=== PATIENT | male | born 1990 | race Caucasian/White ===

== ENCOUNTER 2016-08-22 19:38 | Emergency (ER) | payer BC, OTHER ==
[2016-08-22] MEDS ORDERED: FAMOTIDINE 20 MG/2 ML VIAL IV STA (20:08)
[2016-08-22] MEDS ORDERED: SODIUM CHLORIDE 0.9% 1,000 ML IV STA (20:08)
[2016-08-22] MEDS ORDERED: ONDANSETRON 4 MG/2 ML VIAL IVP STA (20:08)
--- NOTE | 2016-08-22 20:10 | ED ---
General Adult HPI - General Chief complaint: Nausea/Vomiting/Diarrhea Stated complaint: Dizzy Time Seen by Provider: 08/22/16 20:04 Source: patient Mode of arrival: ambulatory Limitations: no limitations - History of Present Illness Initial comments: Patient's age 25-year-old male presenting with nausea, vomiting, diarrhea. Patient states symptoms started over the last 24 hours and he has vomited 4 times. Initially vomit was food contents and then watery. Patient denies bloody vomit. Patient has not taken any medication for the vomit. Patient had one episode of loose stool. Stool was nonbloody in nature. Patient denies sick contacts or antibiotic use. Patient denies child. Patient does have a suspicion that he ate some bad popcorn shrimp at [facility] yesterday. - Related Data Home Medications Medication Instructions Recorded Confirmed No Known Home Medications [No 08/22/16 08/22/16 Known Home Medications] Allergies Allergy/AdvReac Type Severity Reaction Status Date / Time No Known Allergies Allergy Verified 08/22/16 20:10 Review of Systems ROS Statement: Those systems with pertinent positive or pertinent negative responses have been documented in the HPI. Constitutional: No fever and no chills. HENT: No congestion, no rhinorrhea and no sore throat. Eyes: No discharge and no redness. Respiratory: No cough and no shortness of breath. Cardiovascular: No chest pain and no palpitations. Gastrointestinal: +nausea, +vomiting, no abdominal pain and +diarrhea. Genitourinary: No dysuria and no hematuria. Musculoskeletal: No back pain and no arthralgias. Skin: No pallor and no rash. Neurological: No dizziness and No headaches. ROS Other: All systems not noted in ROS Statement are negative. Past Medical History Past Medical History: No Reported History History of Any Multi-Drug Resistant Organisms: None Reported Past Surgical History: Ear Surgery Past Psychological History: ADD/ADHD Smoking Status: Current every day smoker Past Alcohol Use History: Rare Past Drug Use History: None Reported General Exam - General Exam Comments Initial Comments: Constitutional: Patient appears well-developed and well-nourished. No distress. Head: Normocephalic and atraumatic. Eyes: Conjunctivae and EOM are normal. Right eye exhibits no discharge. Left eye exhibits no discharge. No scleral icterus. Neck: Normal range of motion. Neck supple. Cardiovascular: Normal rate and regular rhythm. No murmur heard. Pulmonary/Chest: Effort normal and breath sounds normal. No respiratory distress. No wheezes. Abdominal: Soft. No distension. There is no tenderness. There is no rebound and no guarding. Musculoskeletal: Normal range of motion. No edema or tenderness. Neurological: Patient alert and oriented to person, place, and time. Skin: Skin is warm and dry. Not diaphoretic. Nursing notes and vitals reviewed. Limitations: no limitations Course Vital Signs 08/22/16 19:53 Temperature 99.0 F Pulse Rate 99 Respiratory 18 Rate Blood Pressure 100/65 O2 Sat by Pulse 99 Oximetry - Reevaluation(s) Reevaluation #1: 08/22/16 22:41 Patient's been much better after IV fluids and medications. No abdominal tenderness. No right upper quadrant tenderness. Medical Decision Making - Medical Decision Making Patient is a 25-year-old male presenting with nausea/vomiting/diarrhea. Patient has concern that he ate bad food yesterday. Patient was given IV fluids , Pepcid, Zofran with improvement of symptoms. Laboratory work shows elevated bilirubin of 2.2. Patient's been much better and no abdominal pain. Abdominal exam reveals a soft nontender. Patient instructed to follow up with primary care doctor about elevated bilirubin. Prior to discharge, patient was resting comfortably in bed. Course of stay improved. Denies pain. Discussed physical exam and diagnostic tests with patient. Questions answered and patient is agreeable to discharge with close follow up with Primary Care Physician. Instructed to return to Emergency Department if symptoms worsen. - Lab Data Result diagrams: 08/22/16 20:27 08/22/16 20:27 Lab Results 08/22/16 08/22/16 Range/Units 20:27 20:27 WBC 8.3 (3.8-10.6) k/uL RBC 5.39 (4.30-5.90) m/uL Hgb 16.5 (13.0-17.5) gm/dL Hct 47.0 (39.0-53.0) % MCV 87.1 (80.0-100.0) fL MCH 30.6 (25.0-35.0) pg MCHC 35.2 (31.0-37.0) g/dL RDW 13.1 (11.5-15.5) % Plt Count 138 L (150-450) k/uL Neutrophils % 87 % Lymphocytes % 7 % Monocytes % 5 % Eosinophils % 1 % Basophils % 0 % Neutrophils # 7.2 (1.3-7.7) k/uL Lymphocytes # 0.6 L (1.0-4.8) k/uL Monocytes # 0.4 (0-1.0) k/uL Eosinophils # 0.1 (0-0.7) k/uL Basophils # 0.0 (0-0.2) k/uL Sodium 140 (137-145) mmol/L Potassium 4.0 (3.5-5.1) mmol/L Chloride 104 (98-107) mmol/L Carbon Dioxide 23 (22-30) mmol/L Anion Gap 13 mmol/L BUN 20 (9-20) mg/dL Creatinine 0.70 (0.66-1.25) mg/dL Est GFR (MDRD) Af Amer >60 (>60 ml/min/1.73 sqM) Est GFR (MDRD) Non-Af >60 (>60 ml/min/1.73 sqM) Glucose 90 (74-99) mg/dL Calcium 9.2 (8.4-10.2) mg/dL Total Bilirubin 2.2 H (0.2-1.3) mg/dL AST 23 (17-59) U/L ALT 35 (21-72) U/L Alkaline Phosphatase 81 (38-126) U/L Total Protein 7.7 (6.3-8.2) g/dL Albumin 4.8 (3.5-5.0) g/dL Lipase 13 L (23-300) U/L Disposition Clinical Impression: Nausea vomiting and diarrhea, Elevated bilirubin Disposition: HOME SELF-CARE Condition: Good Instructions: Acute Nausea and Vomiting (ED), Acute Diarrhea (ED) Referrals: None,Stated [Primary Care Provider] - 1-2 days David Hoffman MD [REFERRING] - 1-2 days
[2016-08-22 20:39] LABS: Basophils % (A) 0 %; CH 32.1; Eosinophils # (A) 0.1 k/uL (0-0.7); Eosinophils % (A) 1 %; HDW 2.65; HGB 16.5 gm/dL (13.0-17.5); Luc # (Auto) 0.06; Luc % (Auto) 1; Lymphocytes # (A) 0.6 k/uL (1.0-4.8); Lymphocytes % (A) 7 %; MCH 30.6 pg (25.0-35.0); MCHC 35.2 g/dL (31.0-37.0); MCV 87.1 fL (80.0-100.0); Mean Platelet Volume 7.3; Monocytes # (A) 0.4 k/uL (0-1.0); Monocytes % (A) 5 %; Neutrophils # (A) 7.2 k/uL (1.3-7.7); Neutrophils % (A) 87 %; RBC 5.39 m/uL (4.30-5.90); RDW 13.1 % (11.5-15.5); WBC 8.3 k/uL (3.8-10.6); WBC (Perox) 8.18
[2016-08-22 20:44] LABS: ALT 35 U/L (21-72); AST 23 U/L (17-59); Alkaline Phosphatase 81 U/L (38-126); Anion Gap 13 mmol/L; Blood Urea Nitrogen 20 mg/dL (9-20); Calcium 9.2 mg/dL (8.4-10.2); Carbon Dioxide 23 mmol/L (22-30); Chloride 104 mmol/L (98-107); Glucose 90 mg/dL (74-99); Non-African American GFR(MDRD) >60 (>60 ml/min/1.73 sqM); Sodium 140 mmol/L (137-145); Total Bilirubin 2.2 mg/dL (0.2-1.3); Total Protein 7.7 g/dL (6.3-8.2)
[2016-08-22 23:10] VITALS: BP 136/63; PULSE 85; RESP 16; TEMP 98.1
== END 2016-08-22 22:50 | disposition home or self-care (01) ==
LOC: EC 19:38
DX: R11.2 Nausea with vomiting, unspecified (principal); R19.7 Diarrhea, unspecified; R17 Unspecified jaundice; F17.200 Nicotine dependence, unspecified, uncomplicated
CPT/HCPCS: 36415; 80053; 83690; 85025; 99284; 96374; 96375; 96361; J2405

== ENCOUNTER 2016-10-05 07:16 | Emergency (ER) | payer BC, OTHER ==
[2016-10-05 07:27] VITALS: BP 142/63; PULSE 85; RESP 20; TEMP 99
== END 2016-10-05 07:43 | disposition home or self-care (01) ==
LOC: EC 07:16
DX: Z02.89 Encounter for other administrative examinations (principal)

== ENCOUNTER 2017-08-23 21:08 | Emergency (ER) | payer BC, OTHER ==
[2017-08-23] MEDS ORDERED: DEXAMETHASONE SOD PHOSPHATE 10 MG/ML 1 ML VIAL IM STA (21:27)
[2017-08-23] MEDS ORDERED: IBUPROFEN 600 MG TAB PO STA (21:27)
[2017-08-23] MEDS ORDERED: ACETAMINOPHEN TAB 325 MG TAB PO STA (21:27)
--- NOTE | 2017-08-23 22:01 | ED ---
ENT HPI - General Chief complaint: ENT Stated complaint: Sore throat Time Seen by Provider: 08/23/17 21:13 Source: patient Mode of arrival: ambulatory Limitations: no limitations - History of Present Illness Initial comments: 26-year-old male patient presents to the emergency department today for evaluation of a sore throat. Patient states that symptoms started yesterday morning. Patient states that his throat feels swollen which makes it difficult for him to swallow. He denies any nasal drainage or cough. Denies any known fevers. States it is been aching and feeling unwell throughout the day. Denies any abdominal pain or vomiting. Patient denies any recent rash, fever, chills, shortness breath, chest pain, abdominal pain, nausea, vomiting, diarrhea , constipation, back pain, numbness, tingling, dizziness, weakness, hematuria, dysuria, urinary urgency, urinary frequency, headache, visual changes, or any other complaints. - Related Data Home Medications Medication Instructions Recorded Confirmed Ibuprofen [Motrin] 800 mg PO Q6HR PRN 07/14/17 08/23/17 Previous Rx's Medication Instructions Recorded Amoxicillin 500 mg PO Q8H #30 capsule 08/23/17 Allergies Allergy/AdvReac Type Severity Reaction Status Date / Time No Known Allergies Allergy Verified 08/23/17 21:12 Review of Systems ROS Statement: Those systems with pertinent positive or pertinent negative responses have been documented in the HPI. ROS Other: All systems not noted in ROS Statement are negative. Past Medical History Past Medical History: No Reported History History of Any Multi-Drug Resistant Organisms: None Reported Past Surgical History: Ear Surgery Past Psychological History: ADD/ADHD Smoking Status: Current every day smoker Past Alcohol Use History: Rare Past Drug Use History: None Reported General Exam Limitations: no limitations General appearance: alert, in no apparent distress, other (This is a well- developed, well-nourished adult male patient in no acute distress. Vital signs upon presentation are temperature 99.1F, pulse 105, respirations 22, blood pressure 140/74, pulse ox 96% on room air.) Eye exam: Present: normal appearance, PERRL, EOMI. Absent: scleral icterus, conjunctival injection, periorbital swelling ENT exam: Present: normal exam, mucous membranes moist, TM's normal bilaterally (Bilateral tympanic membrane scarring, otherwise normal.). Absent: normal oropharynx (Pharyngeal erythema, tonsillar hypertrophy, no tonsillar exudate noted.) Neck exam: Present: normal inspection. Absent: tenderness, meningismus, lymphadenopathy Respiratory exam: Present: normal lung sounds bilaterally. Absent: respiratory distress, wheezes, rales, rhonchi, stridor Cardiovascular Exam: Present: regular rate, normal rhythm, normal heart sounds. Absent: systolic murmur, diastolic murmur, rubs, gallop, clicks GI/Abdominal exam: Present: soft, normal bowel sounds. Absent: distended, tenderness, guarding, rebound, rigid Neurological exam: Present: alert, oriented X3, CN II-XII intact Psychiatric exam: Present: normal affect, normal mood Skin exam: Present: warm, dry, intact, normal color. Absent: rash Course Vital Signs 08/23/17 21:09 Temperature 99.1 F Pulse Rate 105 H Respiratory 22 Rate Blood Pressure 140/74 O2 Sat by Pulse 96 Oximetry Medical Decision Making - Medical Decision Making 26-year-old male patient presented to the emergency department today for evaluation of a sore throat and painful swallowing. Physical examination did reveal tonsillar hypertrophy and erythema. Patient had no lymphadenopathy. Currently afebrile. Currently absent is cough and nasal drainage. I did discuss findings of a negative strep screen and influenza test with the patient. I did discuss the possibility of the false negative testing on the strep screen. I did write him a prescription for amoxicillin and gave him explicit instructions to start this if he continues to have a sore throat for the next 3 days with the absence of cough and coryza. He is instructed to continue taking ibuprofen for anti-inflammatory effects and pain relief. He is instructed to increase fluids. Instructed to follow-up with his primary care physician for recheck in 1-2 days. He is instructed to return here immediately for any new, worsening, or concerning symptoms. He verbalizes understanding and agrees with this plan. - Lab Data Lab Results 08/23/17 08/23/17 Range/Units 21:20 22:10 Influenza Type A RNA Not Detected (Not Detectd) Influenza Type B (PCR) Not Detected (Not Detectd) Group A Strep Rapid Negative (Negative) Disposition Clinical Impression: Pharyngitis Disposition: HOME SELF-CARE Condition: Good Instructions: Pharyngitis (ED) Additional Instructions: Rest, increase fluids. Take antibiotic prescription in full. Follow-up with your primary care physician for recheck in 1-2 days. Treat ear pain and fevers with ibuprofen and acetaminophen. Return here immediately for any new, worsening, or concerning symptoms. Prescriptions: Amoxicillin 500 mg PO Q8H #30 capsule Referrals: None,Stated [Primary Care Provider] - 1-2 days Time of Disposition: 22:38
[2017-08-23 22:52] VITALS: BP 152/62; PULSE 94; RESP 18; TEMP 98.8
== END 2017-08-23 22:54 | disposition home or self-care (01) ==
LOC: EC 21:08
DX: J02.9 Acute pharyngitis, unspecified (principal); F17.200 Nicotine dependence, unspecified, uncomplicated
CPT/HCPCS: 87081; 87430; 87502; 99283; 96372; J1100

== ENCOUNTER 2017-11-26 00:40 | Emergency (ER) | payer OTHER ==
[2017-11-26 00:50] VITALS: BP 141/88; PULSE 66; RESP 18; TEMP 97.3
[2017-11-26] MEDS ORDERED: PENICILLIN VK 500MG STARTER 4 TAB BTL PO STA (01:42)
[2017-11-26] MEDS ORDERED: ACET/COD 300 MG/30 MG STARTER PACK 6 TAB BTL PO STA (01:42)
--- NOTE | 2017-11-26 01:45 | ED ---
General Adult HPI - General Chief complaint: Dental/Oral Stated complaint: Dental Pain Time Seen by Provider: 11/26/17 01:36 Source: patient, RN notes reviewed Mode of arrival: ambulatory Limitations: no limitations - History of Present Illness Initial comments: Patient 26-year-old male presented to the emergency room today with a chief complaint of increased dental pain. Patient does admit that pain started 2 days ago. He states he was using ibuprofen. He states today he has not had much relief. He states that he's had a difficult time trying to sleep tonight because of the pain. Patient denies any drainage or discharge. He states he does have bad teeth. Patient denies any recent fever, chills, shortness of breath, chest pain, back pain, abdominal pain, nausea or vomiting, numbness or tingling, dysuria or hematuria, constipation or diarrhea, headaches or visual changes, or any other complaints. - Related Data Home Medications Medication Instructions Recorded Confirmed Ibuprofen [Motrin] 800 mg PO Q6HR PRN 07/14/17 08/23/17 Previous Rx's Medication Instructions Recorded Amoxicillin 500 mg PO Q8H #30 capsule 08/23/17 Allergies Allergy/AdvReac Type Severity Reaction Status Date / Time No Known Allergies Allergy Verified 11/26/17 00:50 Review of Systems ROS Statement: Those systems with pertinent positive or pertinent negative responses have been documented in the HPI. ROS Other: All systems not noted in ROS Statement are negative. Past Medical History Past Medical History: No Reported History History of Any Multi-Drug Resistant Organisms: None Reported Past Surgical History: Ear Surgery Past Psychological History: ADD/ADHD Smoking Status: Current every day smoker Past Alcohol Use History: Rare Past Drug Use History: None Reported General Exam - General Exam Comments Initial Comments: General: The patient is awake and alert, in no distress, and does not appear acutely ill. Eye: Pupils are equal, round and reactive to light, extra-ocular movements are intact. No nystagmus. There is normal conjunctiva bilaterally. No signs of icterus. Ears, nose, mouth and throat: There are moist mucous membranes and no oral lesions. Patient tender to palpation upper gumline over tooth #2. No sign of abscess. Uvula midline. Neck: The neck is supple, there is no tenderness or JVD. Musculoskeletal: Normal ROM, no tenderness. Strength 5/5. Sensation intact. Pulses equal bilaterally 2+. Neurological: A&O x 3. CN II-XII intact, There are no obvious motor or sensory deficits. Coordination appears grossly intact. Speech is normal. Skin: Skin is warm and dry and no rashes or lesions are noted. Psychiatric: Cooperative, appropriate mood & affect, normal judgment. Limitations: no limitations Course Vital Signs 11/26/17 00:47 Temperature 97.3 F L Pulse Rate 66 Respiratory 18 Rate Blood Pressure 141/88 O2 Sat by Pulse 99 Oximetry Medical Decision Making - Medical Decision Making Options were discussed with the patient about dental block here in emergency room. He has declined. Patient agreeable to [Tylenol 3 and penicillin. Will be discharged home with penicillin prescription. Advised follow-up over the next 2 days with dentist. Disposition Clinical Impression: Dental abscess Disposition: HOME SELF-CARE Condition: Good Instructions: Dental Abscess (ED) Additional Instructions: Please follow-up dentist over the next 2 days. Please use antibiotic as prescribed. Please return to emergency room for any other concerns. Is patient prescribed a controlled substance at d/c from ED?: Yes If prescribed controlled substance>3 days was MAPS reviewed?: No When asked, does pt state using other controlled substances?: No Referrals: None,Stated [Primary Care Provider] - 1-2 days Time of Disposition: 01:44
== END 2017-11-26 01:52 | disposition home or self-care (01) ==
LOC: EC 00:40
DX: K04.7 Periapical abscess without sinus (principal); F17.200 Nicotine dependence, unspecified, uncomplicated
CPT/HCPCS: 99282

== ENCOUNTER 2023-11-12 19:34 | Emergency (ER) | payer BC ==
[2023-11-12 20:19] VITALS: TEMP 97.2
[2023-11-12] MEDS: DEXAMETHASONE SOD PHOSPHATE 10 MG/ML 1 ML VIAL IVP STA (20:51)
[2023-11-12] MEDS: KETOROLAC 15 MG/ML 1 ML VIAL IVP STA (20:51)
[2023-11-12] MEDS: HYDROmorphone 0.5 MG/0.5 ML SYRINGE IVP STA (20:52)
--- NOTE | 2023-11-12 21:03 | ED ---
ENT HPI - General Chief complaint: Dental/Oral Stated complaint: tooth pain facial swelling Time Seen by Provider: 11/12/23 19:53 Source: patient Mode of arrival: ambulatory - History of Present Illness Initial comments: 32-year-old male presenting to the ED with a chief complaint of dental pain. Reports that he was seen for this prior he was previously recommended that he get the majority of his top teeth taken out. States he can only afford to have a few taken out and did not end up getting the rest taken out. States over the past 3 weeks has had increased pain primarily of his upper teeth. Also notes that he has now started to develop some swelling of the upper left side of his face. No dyspnea. No dysphagia. No chest pain shortness of breath. No fever or chills. No other complaints at this time. - Related Data Home Medications Medication Instructions Recorded Confirmed Ibuprofen [Motrin] 800 mg PO Q6HR PRN 07/14/17 08/23/17 Previous Rx's Medication Instructions Recorded Amoxicillin 500 mg PO Q8H #30 capsule 08/23/17 Penicillin V Potassium [Pen Vee K] 500 mg PO QID #40 tablet 11/26/17 clindamycin HCL [Clindamycin HCl] 300 mg PO Q6HR #40 cap 12/25/21 Acetaminophen Tab [Tylenol] 500 mg PO Q6H PRN #60 tablet 11/12/23 Amoxic-Pot Clav 875-125Mg 1 tab PO Q12HR #20 tab 11/12/23 [Augmentin 875-125] Ibuprofen [Motrin] 800 mg PO Q6HR #30 tab 11/12/23 Allergies Allergy/AdvReac Type Severity Reaction Status Date / Time No Known Allergies Allergy Verified 11/12/23 19:52 Review of Systems ROS Statement: Those systems with pertinent positive or pertinent negative responses have been documented in the HPI. ROS Other: All systems not noted in ROS Statement are negative. Past Medical History Past Medical History: No Reported History History of Any Multi-Drug Resistant Organisms: None Reported Past Surgical History: Ear Surgery Past Psychological History: ADD/ADHD Smoking Status: Current every day smoker Past Alcohol Use History: Occasional Past Drug Use History: Marijuana General Exam General appearance: alert ENT exam: Present: other (Very poor dentition with multiple cavities. No significant oropharyngeal swelling. Minimal swelling over the left maxilla.) Cardiovascular Exam: Present: regular rate GI/Abdominal exam: Present: soft Neurological exam: Present: alert, oriented X3 Skin exam: Present: warm, dry Course Vital Signs 11/12/23 19:48 Temperature 97.2 F L Pulse Rate 97 Respiratory 18 Rate Blood Pressure 165/92 O2 Sat by Pulse 99 Oximetry Medical Decision Making - Medical Decision Making Was pt. sent in by a medical professional or institution ([facility], [employer], urgent care, hospital, or residential...) When possible be specific @ -No Did you speak to anyone other than the patient for history (EMS, parent, family, police, friend...)? What history was obtained from this source @ -No Did you review nursing and triage notes (agree or disagree)? Why? @ -I reviewed and agree with nursing and triage notes Were old charts reviewed (outside hosp., previous admission, EMS record, old EKG, old radiological studies, urgent care reports/EKG's, residential records)? Report findings @ -No old charts were reviewed Differential Diagnosis (chest pain, altered mental status, abdominal pain women, abdominal pain men, vaginal bleeding, weakness, fever, dyspnea, syncope, headache, dizziness, GI bleed, back pain, seizure, CVA, palpatations, mental health, musculoskeletal)? @ -ANUG, Stefan's angina, Apical abscess. This is not meant to be an all-inclusive list. EKG interpreted by me (3pts min.). @ -None X-rays interpreted by me (1pt min.). @ -None done CT interpreted by me (1pt min.). @ -None done U/S interpreted by me (1pt. min.). @ -None done What testing was considered but not performed or refused? (CT, X-rays, U/S, labs)? Why? @ -None What meds were considered but not given or refused? Why? @ -None Did you discuss the management of the patient with other professionals (professionals i.e. M[facility] Fuentes, [employer], lab, RT, psych nurse, drug abuse social worker, lawyer real estate, teacher, commercial loan officer, case management manager)? Give summary @ -No Was smoking cessation discussed for >3mins.? @ -No Was critical care preformed (if so, how long)? @ -No Were there social determinants of health that impacted care today? How? (Homelessness, low income, unemployed, alcoholism, drug addiction, transportation, low edu. Level, literacy, decrease access to med. care, assisted, rehab)? @ -No Was there de-escalation of care discussed even if they declined (Discuss DNR or withdrawal of care, Hospice)? DNR status @ -No What co-morbidities impacted this encounter? (DM, HTN, Smoking, COPD, CAD, Cancer, CVA, ARF, Chemo, Hep., AIDS, mental health diagnosis, sleep apnea, morbid obesity)? @ -None Was patient admitted / discharged? Hospital course, mention meds given and route, prescriptions, significant lab abnormalities, going to OR and other pertinent info. @ -Discharge 32-year-old male presenting to the ED with complaints of dental pain. He reports that he was previously instructed to have a majority of his upper teeth taken out but cannot afford to do so therefore only had a few taken out. Reports over the past 3 weeks has had increasing pain of his left upper teeth and today noticed some swelling over the left side of his face. On examination very poor dentition with multiple cavities. Minimal swelling over the left cheekbone. Tolerating secretions. No stridor. No significant oropharyngeal swelling. Provided IV analgesia here with significant improvement of pain. Discharged home with prescription for Augmentin and starter pack of Tylenol 3. Advise close follow-up with dentist. Discussed return precautions with patient who verbalized agreement. Undiagnosed new problem with uncertain prognosis? @ -No Drug Therapy requiring intensive monitoring for toxicity (Heparin, Nitro, Insulin, Cardizem)? @ -No Were any procedures done? @ -No Diagnosis/symptom? @ -Dental pain Acute, or Chronic, or Acute on Chronic? @ -Acute on chronic Uncomplicated (without systemic symptoms) or Complicated (systemic symptoms)? @ -Uncomplicated Side effects of treatment? @ -No Exacerbation, Progression, or Severe Exacerbation? @ -No Poses a threat to life or bodily function? How? (Chest pain, USA, CT, pneumonia, PE, COPD, DKA, ARF, appy, cholecystitis, CVA, Diverticulitis, Homicidal, Suicidal, threat to staff... and all critical care pts) @ -No Disposition Clinical Impression: Pain, dental Disposition: HOME SELF-CARE Condition: Good Instructions (If sedation given, give patient instructions): Toothache (ED) Additional Instructions: Please return to the Emergency Department if symptoms worsen or any other concerns. Please follow-up with a dentist. Look up [facility]. They provide dental services at a reduced cost and may make your dental care more affordable. Prescriptions: Amoxic-Pot Clav 875-125Mg [Augmentin 875-125] 1 tab PO Q12HR #20 tab Ibuprofen [Motrin] 800 mg PO Q6HR #30 tab Acetaminophen Tab [Tylenol] 500 mg PO Q6H PRN #60 tablet PRN Reason: Pain Is patient prescribed a controlled substance at d/c from ED?: No Referrals: None,Stated [Primary Care Provider] - 1-2 days Time of Disposition: 21:37
[2023-11-12] MEDS: ACET/COD 300 MG/30 MG STARTER PACK 6 TAB BTL PO STA (21:49)
[2023-11-12 22:11] VITALS: BP 145/73; PULSE 74; RESP 16
== END 2023-11-12 22:00 | disposition home or self-care (01) ==
LOC: EC 19:34
DX: K08.89 Other specified disorders of teeth and supporting structures (principal); F17.200 Nicotine dependence, unspecified, uncomplicated; F12.90 Cannabis use, unspecified, uncomplicated
CPT/HCPCS: 99283; 96374; 96375 ×2; J1100; J1885; J1170

== ENCOUNTER 2023-11-14 11:12 | Emergency (ER) | payer BC ==
[2023-11-14 12:23] LABS: Basophils % (A) 0 %; Eosinophils % (A) 0 %; HCT 44.2 % (39.0-53.0); HGB 15.4 gm/dL (13.0-17.5); Lymphocytes # (A) 1.6 k/uL (1.0-4.8); Lymphocytes % (A) 13 %; MCH 30.8 pg (25.0-35.0); MCHC 34.9 g/dL (31.0-37.0); MCV 88.4 fL (80.0-100.0); Mean Platelet Volume 8.1; Monocytes # (A) 0.9 k/uL (0-1.0); Monocytes % (A) 7 %; Neutrophils # (A) 9.3 k/uL (1.3-7.7); Neutrophils % (A) 77 %; Platelet Count 178 k/uL (150-450); RDW 12.9 % (11.5-15.5)
[2023-11-14 12:32] LABS: ALT 18 U/L (4-49); AST 17 U/L (17-59); African American GFR (CKD) >90 (>60 ml/min/1.73 sqM); Albumin 4.4 g/dL (3.5-5.0); Alkaline Phosphatase 93 U/L (38-126); Anion Gap 9 mmol/L; Blood Urea Nitrogen 16 mg/dL (9-20); Calcium 9.2 mg/dL (8.4-10.2); Carbon Dioxide 25 mmol/L (22-30); Chloride 107 mmol/L (98-107); Glucose 106 mg/dL (74-99); Non-African American GFR(CKD) >90 (>60 ml/min/1.73 sqM); Potassium 4.1 mmol/L (3.5-5.1); Sodium 141 mmol/L (137-145); Total Bilirubin 1.2 mg/dL (0.2-1.3); Total Protein 7.1 g/dL (6.3-8.2)
[2023-11-14] MEDS: AMPICILLIN-SULBACTAM 3 GM in SODIUM CHLORIDE 0.9% 100 ML IVPB STA (12:32)
[2023-11-14] MEDS: KETOROLAC 15 MG/ML 1 ML VIAL IVP STA (12:39)
[2023-11-14] MEDS: DEXAMETHASONE SOD PHOSPHATE 10 MG/ML 1 ML VIAL IVP STA (12:40)
--- NOTE | 2023-11-14 12:51 | ED ---
ENT HPI - General Chief complaint: Dental/Oral Stated complaint: dental pain,facial swelling Time Seen by Provider: 11/14/23 11:25 Source: patient, RN notes reviewed Mode of arrival: ambulatory Limitations: no limitations - History of Present Illness Initial comments: 32-year-old male presents emergency department complaint of left-sided facial swelling, dental pain. Patient states ECGs goes place and Augmentin. Symptoms worsen with swelling states pain is not as bad denies any fever chills no difficulty swallowing he states he has very poor dentition. - Related Data Home Medications Medication Instructions Recorded Confirmed Ibuprofen [Motrin] 800 mg PO Q6HR PRN 07/14/17 08/23/17 Previous Rx's Medication Instructions Recorded Amoxicillin 500 mg PO Q8H #30 capsule 08/23/17 Penicillin V Potassium [Pen Vee K] 500 mg PO QID #40 tablet 11/26/17 clindamycin HCL [Clindamycin HCl] 300 mg PO Q6HR #40 cap 12/25/21 Acetaminophen Tab [Tylenol] 500 mg PO Q6H PRN #60 tablet 11/12/23 Amoxic-Pot Clav 875-125Mg 1 tab PO Q12HR #20 tab 11/12/23 [Augmentin 875-125] Ibuprofen [Motrin] 800 mg PO Q6HR #30 tab 11/12/23 Chlorhexidine Gluconate [Peridex] 15 ml PO BID #473 ml 11/14/23 predniSONE 50 mg PO DAILY #3 tab 11/14/23 Allergies Allergy/AdvReac Type Severity Reaction Status Date / Time No Known Allergies Allergy Verified 11/14/23 11:16 Review of Systems ROS Statement: Those systems with pertinent positive or pertinent negative responses have been documented in the HPI. ROS Other: All systems not noted in ROS Statement are negative. Past Medical History Past Medical History: No Reported History History of Any Multi-Drug Resistant Organisms: None Reported Past Surgical History: Ear Surgery Past Psychological History: ADD/ADHD Smoking Status: Current every day smoker Past Alcohol Use History: Occasional Past Drug Use History: Marijuana General Exam Limitations: no limitations General appearance: alert, in no apparent distress Head exam: Present: atraumatic, normocephalic, normal inspection Eye exam: Present: normal appearance, PERRL, EOMI, periorbital swelling (Left). Absent: scleral icterus, conjunctival injection ENT exam: Present: mucous membranes moist, TM's normal bilaterally, normal external ear exam. Absent: normal exam (Left-sided facial swelling), normal oropharynx (Poor dentition, edentulous, there is no drainable abscess multiple dental erosions dental fractures noted) Neck exam: Present: normal inspection, full ROM. Absent: tenderness, meningismus, lymphadenopathy Respiratory exam: Present: normal lung sounds bilaterally. Absent: respiratory distress, wheezes, rales, rhonchi, stridor Cardiovascular Exam: Present: regular rate, normal rhythm, normal heart sounds. Absent: systolic murmur, diastolic murmur, rubs, gallop, clicks Course Vital Signs 11/14/23 11/14/23 11:13 14:06 Temperature 98 F 98.4 F Pulse Rate 75 78 Respiratory 20 18 Rate Blood Pressure 134/86 126/79 O2 Sat by Pulse 96 97 Oximetry Medical Decision Making - Medical Decision Making Was pt. sent in by a medical professional or institution (, PA, DEMO EVENT SPECIALIST, urgent care, hospital, or half-way...) When possible be specific @ -No Did you speak to anyone other than the patient for history (EMS, parent, family, police, friend...)? What history was obtained from this source @ -No Did you review nursing and triage notes (agree or disagree)? Why? @ -I reviewed and agree with nursing and triage notes Were old charts reviewed (outside hosp., previous admission, EMS record, old EKG, old radiological studies, urgent care reports/EKG's, half-way records)? Report findings @ -Reviewed recent ER visits including prescriptions written Differential Diagnosis (chest pain, altered mental status, abdominal pain women, abdominal pain men, vaginal bleeding, weakness, fever, dyspnea, syncope, headache, dizziness, GI bleed, back pain, seizure, CVA, palpatations, mental health, musculoskeletal)? @Dental abscess, facial cellulitis, dental fracture dental infection EKG interpreted by me (3pts min.). @ -None X-rays interpreted by me (1pt min.). @ -None done CT interpreted by me (1pt min.). @ -CT of the facial bones showing no evidence of drainable abscess there is a dental fracture noted U/S interpreted by me (1pt. min.). @ -None done What testing was considered but not performed or refused? (CT, X-rays, U/S, labs)? Why? @ -None What meds were considered but not given or refused? Why? @ -None Did you discuss the management of the patient with other professionals (professionals i.e. , PA, DEMO EVENT SPECIALIST, lab, RT, psych nurse, clinical social work aide, estate conservator, teacher, commanding officer traffic division, case advocate)? Give summary @ -No Was smoking cessation discussed for >3mins.? @ -No Was critical care preformed (if so, how long)? @ -No Were there social determinants of health that impacted care today? How? (Homelessness, low income, unemployed, alcoholism, drug addiction, transportation, low edu. Level, literacy, decrease access to med. care, shelter, rehab)? @ -No Was there de-escalation of care discussed even if they declined (Discuss DNR or withdrawal of care, Hospice)? DNR status @ -No What co-morbidities impacted this encounter? (DM, HTN, Smoking, COPD, CAD, Cancer, CVA, ARF, Chemo, Hep., AIDS, mental health diagnosis, sleep apnea, mor bid obesity)? @ -None Was patient admitted / discharged? Hospital course, mention meds given and rou te, prescriptions, significant lab abnormalities, going to OR and other pertinent info. @ -Discharge patient was given Unasyn, laboratory studies unremarkable and CT shows no drainable abscess he will continue Augmentin, given dose of Decadron. Patient's pain is under control with current analgesics patient will follow-up with oral surgery Undiagnosed new problem with uncertain prognosis? @ -No Drug Therapy requiring intensive monitoring for toxicity (Heparin, Nitro, Insulin, Cardizem)? @ -No Were any procedures done? @ -No Diagnosis/symptom? @ -Dental infection, left-sided facial swelling Acute, or Chronic, or Acute on Chronic? @ -Acute Uncomplicated (without systemic symptoms) or Complicated (systemic symptoms)? @ -Complicated Side effects of treatment? @ -No Exacerbation, Progression, or Severe Exacerbation? @ -No Poses a threat to life or bodily function? How? (Chest pain, [place], [place], pneumonia, PE, COPD, DKA, ARF, appy, cholecystitis, CVA, Diverticulitis, Homicidal, Suicidal, threat to staff... and all critical care pts) @ -No - Lab Data Result diagrams: 11/14/23 11:57 11/14/23 11:57 Lab Results 11/14/23 11/14/23 11/14/23 Range/Units 11:57 11:57 11:57 WBC 12.0 H (3.8-10.6) k/uL RBC 5.00 (4.30-5.90) m/uL Hgb 15.4 (13.0-17.5) gm/dL Hct 44.2 (39.0-53.0) % MCV 88.4 (80.0-100.0) fL MCH 30.8 (25.0-35.0) pg MCHC 34.9 (31.0-37.0) g/dL RDW 12.9 (11.5-15.5) % Plt Count 178 (150-450) k/uL MPV 8.1 Neutrophils % 77 % Lymphocytes % 13 % Monocytes % 7 % Eosinophils % 0 % Basophils % 0 % Neutrophils # 9.3 H (1.3-7.7) k/uL Lymphocytes # 1.6 (1.0-4.8) k/uL Monocytes # 0.9 (0-1.0) k/uL Eosinophils # 0.0 (0-0.7) k/uL Basophils # 0.0 (0-0.2) k/uL Sodium 141 (137-145) mmol/L Potassium 4.1 (3.5-5.1) mmol/L Chloride 107 (98-107) mmol/L Carbon Dioxide 25 (22-30) mmol/L Anion Gap 9 mmol/L BUN 16 (9-20) mg/dL Creatinine 0.68 (0.66-1.25) mg/dL Est GFR (CKD-EPI)AfAm >90 (>60 ml/min/1.73 sqM) Est GFR (CKD-EPI)NonAf >90 (>60 ml/min/1.73 sqM) Glucose 106 H (74-99) mg/dL Plasma Lactic Acid Clive 0.8 (0.7-2.0) mmol/L Calcium 9.2 (8.4-10.2) mg/dL Total Bilirubin 1.2 (0.2-1.3) mg/dL AST 17 (17-59) U/L ALT 18 (4-49) U/L Alkaline Phosphatase 93 (38-126) U/L Total Protein 7.1 (6.3-8.2) g/dL Albumin 4.4 (3.5-5.0) g/dL Disposition Clinical Impression: Fracture of tooth, Dental infection, Facial swelling Disposition: HOME SELF-CARE Condition: Stable Instructions (If sedation given, give patient instructions): Toothache (ED) Additional Instructions: Please return to the Emergency Department if symptoms worsen or any other concerns. Prescriptions: Chlorhexidine Gluconate [Peridex] 15 ml PO BID #473 ml predniSONE 50 mg PO DAILY #3 tab Is patient prescribed a controlled substance at d/c from ED?: No Referrals: None,Stated [Primary Care Provider] - 1-2 days Suman Fiore DDS [STAFF PHYSICIAN] - 1-2 days Time of Disposition: 13:56
--- NOTE | 2023-11-14 13:33 | CT ---
EXAMINATION TYPE: CT facial bones w con DATE OF EXAM: 11/14/2023 COMPARISON: None HISTORY: LT side facial swelling, dental/facial infection. CT DLP: 600 mGycm CONTRAST: 100 mL of Isovue 300 The paranasal sinuses are examined in the axial plane at 2 mm thick sections. Reconstructed images i n the coronal plane were obtained. There is dental amalgam scatter artifact There is mucosal thickening within the left maxillary sinus. Mucosal thickening is through left ethmo id air cells. Remaining paranasal sinuses and mastoid air cells are clear. The septum is evaluated. There is septal deviation to the left. The right ostiomeatal unit is patent. The left ostiomeatal unit is obstructed. Within the left maxilla there is some lucency adjacent to the root of the left incisor. Underlying ab scess could be considered. Clinical correlation with location of the patient's pain. There is superficial soft tissue swelling over the upper lip. This is slightly greater on the left. T here is some lucency along the anterior left maxilla which could be related to the suspected maxillar y tooth abscess. IMPRESSION: 1. May be some lucency within the maxilla adjacent to the left incisor. Correlate with the location of the patient's pain. 2. Superficial soft tissue swelling diffusely left upper lip.
[2023-11-14 14:21] VITALS: BP 126/79; PULSE 78; RESP 18; TEMP 98.4
== END 2023-11-14 14:08 | disposition home or self-care (01) ==
LOC: EC 11:12
DX: K03.81 Cracked tooth (principal); K04.7 Periapical abscess without sinus; F17.200 Nicotine dependence, unspecified, uncomplicated; F12.90 Cannabis use, unspecified, uncomplicated
CPT/HCPCS: 99284; 96365; 96375 ×2; 36415; 80053; 83605; 85025; 87040; 70487; J1100; J0295; J1885; Q9967

== ENCOUNTER 2023-12-18 15:24 | Emergency (ER) | payer BC ==
--- NOTE | 2023-12-18 15:35 | ED ---
Upper Extremity HPI - General Chief Complaint: Extremity Injury, Upper Stated Complaint: I[facility] R finger injury Time Seen by Provider: 12/18/23 15:35 Source: patient, RN notes reviewed Mode of arrival: ambulatory Limitations: no limitations - History of Present Illness Initial Comments: This is a 33-year-old male with no significant past medical history [facility] emergency department chief complaint of a injury to his right second digit. 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 Patient states that there was a minimal amount of blood loss. He denies paresthesias or loss of mobility of the affected finger. States his last tetanus vaccine was about 2 years ago. No other acute complaints at this time. - Related Data Home Medications Medication Instructions Recorded Confirmed Ibuprofen [Motrin] 800 mg PO Q6HR PRN 07/14/17 08/23/17 Previous Rx's Medication Instructions Recorded Amoxicillin 500 mg PO Q8H #30 capsule 08/23/17 Penicillin V Potassium [Pen Vee K] 500 mg PO QID #40 tablet 11/26/17 clindamycin HCL [Clindamycin HCl] 300 mg PO Q6HR #40 cap 12/25/21 Acetaminophen Tab [Tylenol] 500 mg PO Q6H PRN #60 tablet 11/12/23 Amoxic-Pot Clav 875-125Mg 1 tab PO Q12HR #20 tab 11/12/23 [Augmentin 875-125] Ibuprofen [Motrin] 800 mg PO Q6HR #30 tab 11/12/23 Chlorhexidine Gluconate [Peridex] 15 ml PO BID #473 ml 11/14/23 predniSONE 50 mg PO DAILY #3 tab 11/14/23 Cephalexin [Keflex] 500 mg PO Q6HR #40 cap 12/18/23 Allergies Allergy/AdvReac Type Severity Reaction Status Date / Time No Known Allergies Allergy Verified 12/18/23 15:32 Review of Systems ROS Statement: Those systems with pertinent positive or pertinent negative responses have been documented in the HPI. ROS Other: All systems not noted in ROS Statement are negative. Past Medical History Past Medical History: No Reported History History of Any Multi-Drug Resistant Organisms: None Reported Past Surgical History: Ear Surgery Past Psychological History: ADD/ADHD Smoking Status: Current every day smoker Past Alcohol Use History: Occasional Past Drug Use History: Marijuana General Exam Limitations: no limitations General appearance: alert, in no apparent distress Head exam: Present: atraumatic, normocephalic, normal inspection Eye exam: Present: normal appearance, PERRL, EOMI. Absent: scleral icterus, conjunctival injection, periorbital swelling ENT exam: Present: normal exam, mucous membranes moist Neck exam: Present: normal inspection. Absent: tenderness, meningismus, lymphadenopathy Respiratory exam: Present: normal lung sounds bilaterally. Absent: respiratory distress, wheezes, rales, rhonchi, stridor Cardiovascular Exam: Present: regular rate, normal rhythm, normal heart sounds. Absent: systolic murmur, diastolic murmur, rubs, gallop, clicks GI/Abdominal exam: Present: soft, normal bowel sounds. Absent: distended, tenderness, guarding, rebound, rigid Extremities exam: Present: normal inspection, full ROM, normal capillary refill. Absent: tenderness, pedal edema, joint swelling, calf tenderness Right Hand Wrist exam: Present: full ROM, tenderness (Distal second digit), deformity (Nailbed avulsion) Neuro motor exam: Present: wrist extension intact Vascular: Present: radial pulse (2+). Absent: vascular compromise Back exam: Present: normal inspection Neurological exam: Present: alert, oriented X3, CN II-XII intact Psychiatric exam: Present: normal affect, normal mood Skin exam: Present: warm, dry, intact, normal color. Absent: rash Course Vital Signs 12/18/23 12/18/23 15:30 16:47 Temperature 98.4 F 97.7 F Pulse Rate 80 65 Respiratory 18 18 Rate Blood Pressure 160/82 149/84 O2 Sat by Pulse 96 97 Oximetry Procedures - Orthopedic Splinting/Casting Injury #1 Side: right Upper Extremity Injury Location: finger Upper Extremity Immobilizer: aluminum form splint Medical Decision Making - Medical Decision Making Was pt. sent in by a medical professional or institution (, PA, TRAIN INSPECTOR, urgent care, hospital, or custodial...) When possible be specific @ -No Did you speak to anyone other than the patient for history (EMS, parent, family, police, friend...)? What history was obtained from this source @ -No Did you review nursing and triage notes (agree or disagree)? Why? @ -I reviewed and agree with nursing and triage notes Were old charts reviewed (outside hosp., previous admission, EMS record, old EKG, old radiological studies, urgent care reports/EKG's, custodial records)? Report findings @ -No old charts were reviewed Differential Diagnosis (chest pain, altered mental status, abdominal pain women, abdominal pain men, vaginal bleeding, weakness, fever, dyspnea, syncope, headache, dizziness, GI bleed, back pain, seizure, CVA, palpatations, mental health, musculoskeletal)? @ -Differential Musculoskeletal Muscular strain, contusion, ligament sprain, fracture, arthritis, septic arthritis, bursitis, cellulitis, muscle spasm, nerve compression, DVT, arterial occlusion, herpes zoster, electrolyte abnormality, tumor.... This is not meant to be in all inclusive list EKG interpreted by me (3pts min.). @ -None X-rays interpreted by me (1pt min.). @ -X-ray of the right hand no acute bony abnormalities or fractures noted. CT interpreted by me (1pt min.). @ -None done U/S interpreted by me (1pt. min.). @ -None done What testing was considered but not performed or refused? (CT, X-rays, U/S, labs)? Why? @ -None What meds were considered but not given or refused? Why? @ -None Did you discuss the management of the patient with other professionals (professionals i.e. , PA, TRAIN INSPECTOR, lab, RT, psych nurse, high school social studies teacher, hydrogeology professor, teacher, forward air controller/air officer, pillowcase folder)? Give summary @ -No Was smoking cessation discussed for >3mins.? @ -No Was critical care preformed (if so, how long)? @ -No Were there social determinants of health that impacted care today? How? (Homelessness, low income, unemployed, alcoholism, drug addiction, transportation, low edu. Level, literacy, decrease access to med. care, detention, rehab)? @ -No Was there de-escalation of care discussed even if they declined (Discuss DNR or withdrawal of care, Hospice)? DNR status @ -No What co-morbidities impacted this encounter? (DM, HTN, Smoking, COPD, CAD, Cancer, CVA, ARF, Chemo, Hep., AIDS, mental health diagnosis, sleep apnea, morbid obesity)? @ -None Was patient admitted / discharged? Hospital course, mention meds given and route, prescriptions, significant lab abnormalities, going to OR and other pertinent info. @ -Old male with chief complaint of a right hand injury at work. On examination there is deformity of the right distal second digit. The nail is avulsed. On initial examination concern for potential open fracture therefore antibiotics ordered. Patient sent for x-ray. On reevaluation there are no signs of fracture or dislocation. On evaluation of the patient's finger there are no signs of laceration. The nailbed is slightly intact and disrupted. Area was thoroughly cleansed with sterile water. Finger was placed in a splint. Patient will be discharged home with oral antibiotics. All questions answered at bedside. Stable for discharge. Discussed with Dr. Nova Undiagnosed new problem with uncertain prognosis? @ -No Drug Therapy requiring intensive monitoring for toxicity (Heparin, Nitro, Insulin, Cardizem)? @ -No Were any procedures done? @ -Wound irrigation, splinting Diagnosis/symptom? @ -Nailbed avulsion, trauma to right hand second distal digit Acute, or Chronic, or Acute on Chronic? @ -Acute Uncomplicated (without systemic symptoms) or Complicated (systemic symptoms)? @ -Uncomplicated Side effects of treatment? @ -No Exacerbation, Progression, or Severe Exacerbation? @ -No Poses a threat to life or bodily function? How? (Chest pain, [place], [place], pneumonia, PE, COPD, DKA, ARF, appy, cholecystitis, CVA, Diverticulitis, Homicidal, Suicidal, threat to staff... and all critical care pts) @ -No Disposition Clinical Impression: Finger pain, right, Injury of finger, Nail avulsion Narrative: Please return to the Emergency Department if symptoms worsen or any other concerns. Disposition: HOME SELF-CARE Condition: Good Instructions (If sedation given, give patient instructions): Nail Avulsion (ED) Prescriptions: Cephalexin [Keflex] 500 mg PO Q6HR #40 cap Is patient prescribed a controlled substance at d/c from ED?: No Referrals: None,Stated [Primary Care Provider] - 1-2 days Time of Disposition: 16:30
--- NOTE | 2023-12-18 15:58 | XR ---
EXAMINATION TYPE: XR finger RT DATE OF EXAM: 12/18/2023 CLINICAL HISTORY: pain TECHNIQUE: 3 views of the right fifth digit are submitted. COMPARISON: None FINDINGS: No displaced fracture is seen with certainty. Joint spaces are well-preserved. Correlate for soft tissue injury. IMPRESSION: No acute displaced fracture or dislocation.
[2023-12-18 16:03] VITALS: RESP 18
[2023-12-18] MEDS: ceFAZolin 1,000 MG VIAL (IM USE) IM STA (16:06)
[2023-12-18 16:56] VITALS: BP 149/84; PULSE 65; TEMP 97.7
== END 2023-12-18 16:48 | disposition home or self-care (01) ==
LOC: EC 15:24
DX: S61.300A Unspecified open wound of right index finger with damage to nail, initial encounter (principal); F17.200 Nicotine dependence, unspecified, uncomplicated; W22.8XXA Striking against or struck by other objects, initial encounter; Y99.0 Civilian activity done for income or pay
CPT/HCPCS: 73140; 99283; 96372; J0690